=== PATIENT | female | born 1965 | race Caucasian/White ===

== ENCOUNTER 2022-11-25 08:35 | Outpatient (CLI) | payer BC, SELFPAY ==
[2022-11-25 13:45] LABS: Chloride* 110 mmol/L (96-114)
[2022-11-25 13:46] LABS: Sodium* 142 mmol/L (135-149)
[2022-11-25 13:48] LABS: Aspartate Amino Transferase* 25 U/L (12-35); Bilirubin Total* 1.1 mg/dL (0.1-1.5); Blood Urea Nitrogen* 13 mg/dL (7-30); Carbon Dioxide* 27 mmol/L (20-32); Cholesterol* 242 mg/dL (90-199); Creatinine* 0.7 mg/dL (0.5-1.5); Estimated Glomerular Filt Rate 101 ml/min; Glucose* 95 mg/dL (60-115); Total Protein* 6.8 g/dL (6.0-8.3)
[2022-11-25 13:49] LABS: Alanine Aminotransferase* 24 U/L (4-35); Alkaline Phosphatase* 76 U/L (40-150); Calcium* 9.2 mg/dL (8.4-10.6); HDL Cholesterol* 71 mg/dL (>=50); LDL Cholesterol Calculated 157 mg/dL (<100); Triglycerides* 71 mg/dL (40-149)
[2022-11-25 13:50] LABS: Potassium* 3.9 mmol/L (3.6-5.1)
== END 2022-11-25 08:36 | disposition home or self-care (01) ==
PROVIDERS: PCP Family Medicine; Visit Provider Nurse Practitioner Family
DX: I10 Essential (primary) hypertension (principal); Z13.6 Encounter for screening for cardiovascular disorders
CPT/HCPCS: 80053; 80061

== ENCOUNTER 2023-01-19 14:23 | Outpatient (CLI) | payer BC, SELFPAY ==
--- NOTE | 2023-01-19 14:40 | CRLHL7_ITS ---
For Patients: As a result of the Cures Act, medical imaging exams and procedure reports are released immediately into your electronic medical record. You may view this report before your referring provider. If you have questions, please contact your health care provider. BILATERAL SCREENING MAMMOGRAM WITH COMPUTER-AIDED DETECTION AND TOMOSYNTHESIS TECHNIQUE: CC and MLO views were obtained. These mammographic images have been obtained using full-field digital technique. These mammographic images were interpreted with the benefit of computer-aided detection. Breast tomosynthesis was used in this interpretation. COMPARISON FILM: 12/07/21; 06/12/20; 05/11/19. FINDINGS: There are scattered areas of fibroglandular density. IMPRESSION: There is no radiographic evidence for malignancy. ASSESSMENT: BI-RADS Category 1: Negative RECOMMENDATION: Routine screening mammogram in 1 year. A lay language report of this examination will be provided to the patient. RYAN LANZA M.D. Diagnostic Radiologist [email or web address] Transcribed: 01/20/2023, 2:[address]/Dictated by: Ryan Lanza MD @ 01/20/2023 8:47:00 AM (Electronically Signed)
== END 2023-01-19 14:24 | disposition home or self-care (01) ==
LOC: MAMMO 14:24
PROVIDERS: PCP Family Medicine; Visit Provider Nurse Practitioner Family
DX: Z12.31 Encounter for screening mammogram for malignant neoplasm of breast (principal)
CPT/HCPCS: 77063; 77067

== ENCOUNTER 2023-12-31 07:46 | Outpatient (CLI) | payer BC, SELFPAY | END 2023-12-31 07:47 | disposition home or self-care (01) | LOC: AMB 01-07 20:13 | PROVIDERS: Visit Provider Internal Medicine | DX: R53.1 Weakness (principal); R41.82 Altered mental status, unspecified | CPT/HCPCS: A0998 ==

== ENCOUNTER 2023-12-31 08:59 | Outpatient (CLI) | payer BC, SELFPAY | END 2023-12-31 09:00 | disposition home or self-care (01) | PROVIDERS: Visit Provider Family Medicine | DX: R55 Syncope and collapse (principal); R53.1 Weakness | CPT/HCPCS: A0425; A0427 ==

== ENCOUNTER 2024-05-08 09:30 | Outpatient (CLI) | payer BC, SELFPAY ==
--- NOTE | 2024-05-08 09:45 | CRLHL7_ITS ---
For Patients: As a result of the Cures Act, medical imaging exams and procedure reports are released immediately into your electronic medical record. You may view this report before your referring provider. If you have questions, please contact your health care provider. BILATERAL SCREENING MAMMOGRAM WITH COMPUTER-AIDED DETECTION AND TOMOSYNTHESIS TECHNIQUE: CC and MLO views were obtained. These mammographic images have been obtained using full-field digital technique. These mammographic images were interpreted with the benefit of computer-aided detection. Breast Tomosynthesis was used in this interpretation. COMPARISON FILM: 01/19/23, 12/07/21, 06/12/20. FINDINGS: There are scattered areas of fibroglandular density IMPRESSION: There is no radiographic evidence for malignancy. ASSESSMENT: BI-RADS Category 1: Negative RECOMMENDATION: Routine screening mammogram in 1 year. A lay language report of this examination will be provided to the patient. SHAWNA BERKOWITZ M.D. Diagnostic/Nuclear Medicine Radiologist [email or web address] Transcribed: 1:36 p.mIldefonso harvey/Dictated by: Shawna Berkowitz MD @ 05/10/2024 9:38:00 AM (Electronically Signed)
== END 2024-05-08 09:31 | disposition home or self-care (01) ==
LOC: MAMMO 09:31
PROVIDERS: Visit Provider Physician Assistant
DX: Z12.31 Encounter for screening mammogram for malignant neoplasm of breast (principal)
CPT/HCPCS: 77063; 77067